=== PATIENT | male | born 1935 | race Caucasian/White ===

== ENCOUNTER 2017-04-01 07:32 | Day surgery (SDC) | payer MEDICARE, OTHER ==
--- NOTE | ~2017-04-01 | EGD ---
EGD REPORT [facility] [address] [address] NAME: MAURICIO COYLE : [birth year] STATUS : REG [facility]#: [id number] AGE: 81 ADM/REG DATE : 04/01/17 MR#: [id number] REPORT SERV DATE: 04/01/17 DICTATED BY: MELANIE CROSS DATE: 04/01/17 REPORT STATUS : Draft TRANSCRIBED BY: [employer] DATE: 04/01/17 [facility] Patient Name: Mauricio Coyle Date of : 1935 Attending MD: BIANKA CROSS MD Procedure Date No Time: 04/01/2017 Procedure: Colonoscopy Indications: Heme positive stool Referring MD: TANYA VELA Medicines: See the other procedure note for documentation of the administered medications Complications: No immediate complications. Estimated blood loss: None. Procedure: Pre-Anesthesia Assessment: - ASA Grade Assessment: III - A patient with severe systemic disease. After I obtained informed consent, the scope was passed under direct vision. Throughout the procedure, the patient's blood pressure, pulse, and oxygen saturations were monitored continuously. The [facility] [id number] was introduced through the anus and advanced to the terminal ileum. The ileocecal valve, appendiceal orifice, terminal ileum and rectum were photographed. The entire colon was examined. The colonoscopy was performed without difficulty. The patient tolerated the procedure well. The quality of the bowel preparation was adequate. Findings: The perianal and digital rectal examinations were normal. The terminal ileum appeared normal. A sessile polyp was found in the distal ascending colon. The polyp was diminutive in size. The polyp was removed with a cold biopsy forceps. Resection and retrieval were complete. A few medium-mouthed diverticula were found in the entire colon. The exam was otherwise without abnormality on direct and retroflexion views. Impression: - The examined portion of the ileum was normal. - One diminutive polyp in the distal ascending colon. Resected and retrieved. - Diverticulosis in the entire examined colon. - The examination was otherwise normal on direct and retroflexion views. Recommendation: - Patient has a contact number available for emergencies. The signs and symptoms of potential delayed EGD REPORT [address] [place]. [address] NAME: MAURICIO COYLE : [birth year] STATUS : REG [facility] PAT#: [id number] AGE: 81 ADM/REG DATE : 04/01/17 MR#: [id number] REPORT SERV DATE: 04/01/17 DICTATED BY: MELANIE CROSS DATE: 04/01/17 REPORT STATUS : Draft TRANSCRIBED BY: [employer] DATE: 04/01/17 complications were discussed with the patient. Return to normal activities tomorrow. Written discharge instructions were provided to the patient. - High fiber diet indefinitely. - Discharge patient to home. - Continue present medications. - Await pathology results. - Repeat colonoscopy is not recommended for surveillance. Procedure Code(s): --- Professional --- 38139, Colonoscopy, flexible, proximal to splenic flexure; with biopsy, single or multiple Diagnosis Code(s): --- Professional --- K57.30, Diverticulosis of large intestine without perforation or abscess without bleeding D12.2, Benign neoplasm of ascending colon R19.5, Other fecal abnormalities CPT copyright 2013 [employer]. All rights reserved. The codes documented in this report are preliminary and upon machine heel builder review may be revised to meet current compliance requirements. BIANKA CROSS MD 04/01/2017 9:01 AM This report has been signed electronically. Number of Addenda: 0 Note Initiated On: 04/01/2017 8:38 AM Scope Withdrawal Time 0 hours 6 minutes 36 seconds
[~2017-04-01 07:32] MED LIST: ALLER-CHLOR4 MG OR; ASA5GR PO; ASAB PO; B12100T PO; ELIQUIS 2.5 MG2.5 MG PO; FISH-EPA1000 MG PO; FLOMAX4 PO; FOLIC ACID; FOLIC ACID400 MC1 PO; GARLIC; GARLIC PO; LEVITRA20 MG PO; MAG OXIDE250 MG PO; MAGOX4 PO; MULTIVIT/MIN PO; PERCOCET1 TA4 PO; PRILO PO; PROSCAR5 PO; VITAMIN B-121000 MC1 SL; VITAMIN E; VITE PO
== END 2017-04-01 23:59 | disposition home or self-care (01) ==
LOC: DMU 07:32
PROVIDERS: Internal Medicine Gastroenterology
PROC: 0DBK8ZZ Excision of Ascending Colon, Via Natural or Artificial Opening Endoscopic (ICD-10-PCS; principal; 2017-04-01 09:00)
DX: D12.2 Benign neoplasm of ascending colon (principal); K57.30 Diverticulosis of large intestine without perforation or abscess without bleeding; F03.90 Unspecified dementia, unspecified severity, without behavioral disturbance, psychotic disturbance, mood disturbance, and anxiety; M19.90 Unspecified osteoarthritis, unspecified site; E78.00 Pure hypercholesterolemia, unspecified; K21.9 Gastro-esophageal reflux disease without esophagitis; K44.9 Diaphragmatic hernia without obstruction or gangrene; Z98.890 Other specified postprocedural states; Z88.8 Allergy status to other drugs, medicaments and biological substances; Z91.041 Radiographic dye allergy status; Z98.41 Cataract extraction status, right eye; Z98.42 Cataract extraction status, left eye; Z96.1 Presence of intraocular lens; Z87.442 Personal history of urinary calculi; Z97.2 Presence of dental prosthetic device (complete) (partial); Z87.891 Personal history of nicotine dependence; Z79.899 Other long term (current) drug therapy; Z79.82 Long term (current) use of aspirin
CPT/HCPCS: 88305